=== PATIENT | female | born 2000 | race Caucasian/White ===

== ENCOUNTER 2022-03-04 09:26 | Emergency (ER) | payer OTHER ==
[2022-03-04 11:47] LABS: BASOPHIL 0.5 % (0-2); EOSINOPHIL 1.6 % (0-5); HCT 34.9 % (37.0-47.0); HGB 11.5 g/dl (12.5-16.0); LYMPHOCYTE 22.7 % (15-48); MCH 28.8 pg (25.0-31.0); MCV 87.3 fL (78.0-100.0); MONOCYTE 4.5 % (0-12); MPV 9.3 fL (6.0-9.5); NEUTROPHIL 70.4 % (41-80); NRBC 0; PLT 239 K/uL (150-400); RDW 13.9 % (11.5-14.0); WBC 7.6 K/uL (4.0-10.5)
[2022-03-04 11:51] LABS: BILIRUBIN NEGATIVE (NEGATIVE); BLOOD 3+ Ery/uL (NEGATIVE); CLARITY HAZY (CLEAR); COLOR YELLOW (YELLOW); GLUCOSE (U) NORMAL (NORMAL); LEUKOCYTES NEGATIVE Leu/uL (NEGATIVE); NITRITE NEGATIVE (NEGATIVE); PROTEIN NEGATIVE (NEGATIVE); UROBILINOGEN 0.2 mg/dL (0.2-1.0)
[2022-03-04 12:05] LABS: BACTERIA TRACE
[2022-03-04 12:16] LABS: ALBUMIN 3.4 g/dL (3.4-5.0); BILIRUBIN - TOTAL 0.4 mg/dL (0.2-1.0); CREATININE 0.5 mg/dL (0.51-0.95); GLOBULIN (CALCULATION) 3.7 g/dL; POTASSIUM 3.8 mmol/L (3.5-5.1); TOTAL PROTEIN 7.1 g/dL (6.4-8.2)
== END 2022-03-04 13:40 | disposition home or self-care (01) ==
LOC: FER 09:26
PROVIDERS: Emergency Medicine
DX: O20.0 Threatened abortion (principal); Z3A.14 14 weeks gestation of pregnancy; Z88.8 Allergy status to other drugs, medicaments and biological substances; Z28.310 Unvaccinated for COVID-19
CPT/HCPCS: 36415; 76801; 80053; 81001; 84702; 85025; 86900; 86901